=== PATIENT | female | born 1960 ===

== ENCOUNTER 2017-10-28 20:51 | Observation (INO) | payer OTHER ==
[2017-10-28 20:52] VITALS: BMI 23.6
[2017-10-28 22:19] LABS: BASO % 0.2 % (0.0-2.0); EOS # 0.4 K/uL (0.0-0.7); EOS % 4.7 % (0.0-4.0); HEMOGLOBIN 12.1 g/dL (12.0-16.0); LYMPH # 1.7 K/uL (1.0-4.3); LYMPH % 18.5 % (20.0-40.0); MEAN CELL VOLUME 84.1 fl (81.0-99.0); MEAN CORPUSCULAR HEMOGLOBIN 27.7 pg (27.0-31.0); MEAN CORPUSCULAR HGB CONC 32.9 g/dL (33.0-37.0); MEAN PLATELET VOLUME 8.4 fl (7.2-11.7); MONO # 0.6 K/uL (0.0-0.8); MONO % 6.9 % (0.0-10.0); NEUT # 6.3 K/uL (1.8-7.0); NEUT % 69.7 % (50.0-75.0); NRBC % 0.1 % (0.0-0.0); RBC 4.39 Mil/uL (3.80-5.20); RED CELL DISTRIBUTION WIDTH 15.6 % (11.5-14.5); WHITE BLOOD COUNT 9.1 K/uL (4.8-10.8)
[2017-10-28 22:29] LABS: ALB/GLOB RATIO 1.4 (1.0-2.1); ALBUMIN 4.4 g/dL (3.5-5.0); ALT/SGPT 42 U/L (9-52); AST/SGOT 39 U/L (14-36); BLOOD UREA NITROGEN 13 mg/dl (7-17); CALCIUM 9.6 mg/dL (8.4-10.2); GFR NON-AFRICAN AMERICAN > 60
--- NOTE | 2017-10-28 22:40 | ED PDOC ---
HPI: Chest Pain Time Seen by Provider: 10/28/17 21:00 Chief Complaint (Nursing): Chest Pain Chief Complaint (Provider): Chest Pain History Per: Patient History/Exam Limitations: no limitations Onset/Duration Of Symptoms: Days (x7) Current Symptoms Are (Timing): Still Present Additional Complaint(s): 57 y/o female with a PMHx of CAD, hypercholesterolemia, HTN and one cardiac stent presents to the ED complaining of intermittent left-sided chest pain, onset one week ago. Patient reports her bloody pressure has been high at systolic rate of 180 recently. Patient is complaint with medications. pt currently takes ASA and plavix. Patient denies fever, cough and recent illness. PMD: Dr. Silverman Senior Advisor: Dr. Zimmerman Past Medical History Reviewed: Historical Data, Nursing Documentation, Vital Signs Vital Signs: Last Vital Signs Temp 98.9 F 10/29/17 19:50 Pulse 67 10/29/17 19:50 Resp 18 10/29/17 19:50 BP 108/73 10/29/17 19:50 Pulse Ox 99 10/29/17 19:50 - Medical History PMH: CAD (s/p stent in the left main in 2), HTN, Hypercholesterolemia - Surgical History Surgical History: Coronary Stent Denies: Pacemaker - Family History Family History: States: Unknown Family Hx - Social History Current smoker - smoking cessation education provided: No Alcohol: None Drugs: Denies - Immunization History Hx Tetanus Toxoid Vaccination: No - Home Medications Home Medications: Ambulatory Orders Medication Instructions Recorded Aspirin [Aspir 81] 81 mg PO DAILY 01/23/13 Carvedilol [Coreg] 12.5 mg PO BID 01/08/14 Pitavastatin Calcium [Livalo] 2 mg PO HS 10/29/17 - Allergies Allergies/Adverse Reactions: Allergies Allergy/AdvReac Type Severity Reaction Status Date / Time No Known Allergies Allergy Verified 10/28/17 20:57 ERVIN Risk Score for UA/NSTEMI - ERVIN Risk Score Age > 64: NO 3 or more CAD Risk Factors: YES Known CAD (Stenosis greater than 50%): YES Aspirin use in past 7 days: YES Severe Angina: NO EKG ST changes greater than 0.5mm: NO Positive Cardiac Marker: NO ERVIN Score: 3 Risk %: 13% Curb-65 Severity Score - CURB-65 Severity Score Confusion: No Bun >19mg/dl (>7mmol/L): No Respiratory Rate greater than/equal to 30: No Systolic BP <90 or Diastolic BP less than/equal 60mmHg: No Age >64: No Curb-65 Score: 0 Percentage 30-day mortality: 0.6% Review of Systems ROS Statement: Except As Marked, All Systems Reviewed And Found Negative Constitutional: Negative for: Fever Cardiovascular: Positive for: Chest Pain Respiratory: Negative for: Cough Physical Exam - Reviewed Nursing Documentation Reviewed: Yes Vital Signs Reviewed: Yes - Physical Exam Appears: Positive for: Non-toxic, No Acute Distress Head Exam: Positive for: ATRAUMATIC, NORMOCEPHALIC Skin: Positive for: Normal Color, Warm, Dry Eye Exam: Positive for: Normal appearance, EOMI, PERRL ENT: Positive for: Normal ENT Inspection Neck: Positive for: Normal, Painless ROM Cardiovascular/Chest: Positive for: Regular Rate, Rhythm. Negative for: Murmur Respiratory: Positive for: Normal Breath Sounds. Negative for: Respiratory Distress Gastrointestinal/Abdominal: Positive for: Normal Exam, Soft. Negative for: Tenderness Back: Positive for: Normal Inspection Extremity: Positive for: Normal ROM. Negative for: Deformity Neurologic/Psych: Positive for: Alert, Oriented. Negative for: Motor/Sensory Deficits - Laboratory Results Result Diagrams: 10/28/17 22:15 10/28/17 22:15 - ECG O2 Sat by Pulse Oximetry: 99 (RA) Pulse Ox Interpretation: Normal Medical Decision Making Medical Decision Making: Time: 2140 Impression: Chest pain Rule out CAD given history with multiple cardiac risk factors Plan: -- EKG -- CXR Two Views BP currently well controlled while in the ER Time: 2214 Plan: -- CMP -- Troponin I -- CBC with differentials 2230 pts pcp is not from the area, the barrel raiser is dr zimmerman. pt currently pain free labs reviewed troponin negative explained to pt that need to admit to obs to fully rule out CAD, and cardiac arrythmia Time: 0000 Case discussed case with Dr. Koo, medical service. Patient will be admitted to medical service. Scribe Attestation: Documented by Janell Beard and Romelia Cervantes acting as scribes for Guy Cabrera MD. Provider Scribe Attestation: All medical record entries made by the Scribe were at my direction and personally dictated by me. I have reviewed the chart and agree that the record accurately reflects my personal performance of the history, physical exam, medical decision making, and the department course for this patient. I have also personally directed, reviewed, and agree with the discharge instructions and disposition. Disposition - Clinical Impression Clinical Impression: Chest pain - Patient ED Disposition Is Patient to be Admitted: Yes Counseled Patient/Family Regarding: Studies Performed, Diagnosis, Need For Followup - Disposition Disposition Time: 22:45 Condition: STABLE
[2017-10-29 07:40] LABS: HDL CHOLESTEROL 33 MG/DL (30-70)
[2017-10-29 07:51] LABS: LDL CHOLESTEROL 78 mg/dL (0-129)
--- NOTE | 2017-10-29 08:18 | CARD ---
APPROVED REPORT Date of service: 10/28/2017 EKG Measurement Heart [id number] <Conclusion> Normal sinus rhythm Normal ECG
--- NOTE | 2017-10-29 09:30 | RAD ---
Date of service: 10/28/2017 HISTORY: chest pain COMPARISON: Chest x-ray 10/07/2015 TECHNIQUE: Chest PA and lateral FINDINGS: LUNGS: No active pulmonary disease. PLEURA: No significant pleural effusion identified. No pneumothorax apparent. CARDIOVASCULAR: Normal. OSSEOUS STRUCTURES: Minor multilevel degenerative spondylosis of the thoracic spine VISUALIZED UPPER ABDOMEN: Normal. OTHER FINDINGS: None. IMPRESSION: No active disease.
--- NOTE | 2017-10-29 09:34 | CP.PCM.HP ---
History of Present Illness - History of Present Illness History of Present Illness: 57 year old female with PMHx of CAD, hypercholesterolemia, HTN and one cardiac stent presented to the ED complaining of intermittent left-sided chest pain x 1 week. Patient states blood pressure has been high with SBP around 180. Patient seen and examined at bedside this AM. Patient states she feels better, no longer with chest pain. Patient denies SOB, palpitations, headache, fever, chills, or changes in vision. Designer Writer: Dr. Fairbanks Present on Admission - Present on Admission Any Indicators Present on Admission: No Review of Systems - Review of Systems All systems: reviewed and no additional remarkable complaints except (mentioned in HPI) Past Patient History - Past Medical History & Family History Past Medical History?: Yes Past Family History: Reviewed and not pertinent - Past Social History Alcohol: None Drugs: Denies - CARDIAC Hx Hypercholesterolemia: Yes Hx Hypertension: Yes Hx Pacemaker: No - PULMONARY Hx Respiratory Disorders: No Hx Asthma: No Hx Bronchitis: No Hx Chronic Obstructive Pulmonary Disease (COPD): No Hx Emphysema: No Hx Lung Cancer: No Hx Pneumonia: No Hx Pulmonary Edema: No Hx Pulmonary Embolism: No Hx Respiratory Aspiration: No Hx Respiratory Tract Infection: No Hx Sleep Apnea: No Hx Tuberculosis: No - NEUROLOGICAL Hx Neurological Disorder: No Hx Alzheimer's Disease: No HX Cerebrovascular Accident: No Hx Dementia: No Hx Dizziness: No Hx Meningitis: No Hx Migraine: No Hx Multiple Sclerosis: No Hx Paralysis: No Hx Parkinson's Disease: No Hx Seizures: No Hx Syncope: No Hx Transient Ischemic Attacks (TIA): No Hx Vertigo: No - HEENT Hx HEENT Problems: No Hx Blind: No Hx Cataracts: No Hx Deafness: No Hx Difficulty Chewing: No Hx Epistaxis: No Hx Glaucoma: No Hx Macular Degeneration: No Hx Sinusitis: No - RENAL Hx Chronic Kidney Disease: No Hx Dialysis: No Hx Kidney Stones: No Hx Neurogenic Bladder: No Hx Pyelonephritis: No Hx Renal (Kidney) Cancer: No Hx Renal Failure: No - ENDOCRINE/METABOLIC Hx Endocrine Disorders: No Hx Adrenal Cancer: No Hx Diabetes Insipidus: No Hx Diabetes Mellitus Type 1: No Hx Diabetes Mellitus Type 2: No Hx Hyperthyroidism: No Hx Hypothyroidism: No Hx Systemic Lupus Erythematosus: No - HEMATOLOGICAL/ONCOLOGICAL Hx Blood Transfusions: No Hx Blood Transfusion Reaction: No - INTEGUMENTARY Hx Dermatological Problems: No - MUSCULOSKELETAL/RHEUMATOLOGICAL Hx Falls: No - GASTROINTESTINAL Hx Gastrointestinal Disorders: No - GENITOURINARY/GYNECOLOGICAL Hx Genitourinary Disorders: No - PSYCHIATRIC Hx Psychophysiologic Disorder: No Hx Substance Use: No - SURGICAL HISTORY Hx Coronary Stent: Yes - ANESTHESIA Hx Anesthesia: Yes Hx Anesthesia Reactions: No Hx Malignant Hyperthermia: No Meds Allergies/Adverse Reactions: Allergies Allergy/AdvReac Type Severity Reaction Status Date / Time No Known Allergies Allergy Verified 10/28/17 20:57 Physical Exam - Constitutional Appears: Well - Head Exam Head Exam: ATRAUMATIC, NORMAL INSPECTION, NORMOCEPHALIC - Eye Exam Eye Exam: EOMI, Normal appearance, PERRL - Neck Exam Neck exam: Positive for: Normal Inspection - Respiratory Exam Respiratory Exam: Clear to Auscultation Bilateral, NORMAL BREATHING PATTERN - Cardiovascular Exam Cardiovascular Exam: REGULAR RHYTHM, +S1, +S2 - GI/Abdominal Exam GI & Abdominal Exam: Normal Bowel Sounds, Soft. absent: Tenderness - Extremities Exam Extremities exam: Positive for: normal inspection - Back Exam Back exam: NORMAL INSPECTION - Neurological Exam Neurological exam: Alert, Oriented x3 - Psychiatric Exam Psychiatric exam: Normal Affect, Normal Mood - Skin Skin Exam: Dry, Intact, Normal Color, Warm Results - Vital Signs Recent Vital Signs: Last Vital Signs Temp 98 F 10/29/17 08:00 Pulse 67 10/29/17 09:03 Resp 20 10/29/17 08:00 BP 143/83 10/29/17 09:03 Pulse Ox 99 10/29/17 08:00 - Labs Result Diagrams: 10/28/17 22:15 10/28/17 22:15 Labs: Laboratory Results - last 24 hr 10/28/17 10/28/17 10/29/17 22:15 22:15 06:18 WBC 9.1 RBC 4.39 Hgb 12.1 Hct 36.9 MCV 84.1 D MCH 27.7 MCHC 32.9 L RDW 15.6 H Plt Count 242 MPV 8.4 Neut % (Auto) 69.7 Lymph % (Auto) 18.5 L [place] % (Auto) 6.9 Eos % (Auto) 4.7 H Baso % (Auto) 0.2 Neut # (Auto) 6.3 Lymph # (Auto) 1.7 [place] # (Auto) 0.6 Eos # (Auto) 0.4 Baso # (Auto) 0.0 Sodium 140 Potassium 3.8 Chloride 105 Carbon Dioxide 26 Anion Gap 13 BUN 13 Creatinine 0.7 Est GFR ( Amer) > 60 Est GFR (Non-Af Amer) > 60 Random Glucose 91 Calcium 9.6 Total Bilirubin 0.2 AST 39 H ALT 42 Alkaline Phosphatase 90 Troponin I < 0.0120 < 0.0120 Total Protein 7.6 Albumin 4.4 Globulin 3.2 Albumin/Globulin Ratio 1.4 Triglycerides 110 Cholesterol 139 LDL Cholesterol Direct 78 HDL Cholesterol 33 TSH 3rd Generation 4.28 Assessment & Plan - Assessment and Plan (Free Text) Assessment: 57 year old female with a PMHx of CAD, hypercholesterolemia, HTN and one cardiac stent admitted for chest pain as patient is high risk for cardiac events plan ekg and labs reviewed labs unremarkable trop x 3 negative pending cardiology consult c/w home meds at this time if patient is cleared from cardiology perspective and no new symptoms, patient can be discharged with follow up in office this week
[2017-10-29 12:17] VITALS: RESP 18
[2017-10-29 16:14] VITALS: O2SAT 99
[2017-10-29 19:51] VITALS: BP 108/73; PULSE 67; TEMP 98.9
--- NOTE | 2017-10-29 21:08 | CP.PCM.CON ---
History of Present Illness - History of Present Illness History of Present Illness: Consultation for evaluation of chest pain / not feeling well HPI: 57 year old female with hx of CAD s/p left main stenting in 2011 , s/p repeat cardiac cath in 07/06 with IVUS which showed patent stent with endothelization , HTN , repeat stress test in 07/07 which showed normal results presenting with not feeling well. Noted to be orthostatic on vitals here. ACS ruled out with serial enzymes x 3. Says that she gets right eye and ear discomfort with flushing of the face. BP has been fluctuant. Review of Systems - Review of Systems Systems not reviewed;Unavailable: Acuity of Condition - Constitutional Constitutional: As Per HPI - EENT Eyes: As Per HPI Ears: As Per HPI Nose/Mouth/Throat: As Per HPI - Breasts Breasts: As Per HPI - Cardiovascular Cardiovascular: As Per HPI - Respiratory Respiratory: As Per HPI - Gastrointestinal Gastrointestinal: As Per HPI - Genitourinary Genitourinary: As Per HPI - Reproductive: Female Reproductive:Female: As Per HPI - Menstruation Menstruation: As Per HPI - Musculoskeletal Musculoskeletal: As Per HPI - Integumentary Integumentary: As Per HPI - Neurological Neurological: As Per HPI - Psychiatric Psychiatric: As Per HPI - Endocrine Endocrine: As Per HPI - Hematologic/Lymphatic Hematologic: As Per HPI Past Patient History - Past Medical History & Family History Past Medical History?: Yes Past Family History: Reviewed and not pertinent - Past Social History Alcohol: None Drugs: Denies - CARDIAC Hx Hypercholesterolemia: Yes Hx Hypertension: Yes Hx Pacemaker: No - PULMONARY Hx Respiratory Disorders: No Hx Asthma: No Hx Bronchitis: No Hx Chronic Obstructive Pulmonary Disease (COPD): No Hx Emphysema: No Hx Lung Cancer: No Hx Pneumonia: No Hx Pulmonary Edema: No Hx Pulmonary Embolism: No Hx Respiratory Aspiration: No Hx Respiratory Tract Infection: No Hx Sleep Apnea: No Hx Tuberculosis: No - NEUROLOGICAL Hx Neurological Disorder: No Hx Alzheimer's Disease: No HX Cerebrovascular Accident: No Hx Dementia: No Hx Dizziness: No Hx Meningitis: No Hx Migraine: No Hx Multiple Sclerosis: No Hx Paralysis: No Hx Parkinson's Disease: No Hx Seizures: No Hx Syncope: No Hx Transient Ischemic Attacks (TIA): No Hx Vertigo: No - HEENT Hx HEENT Problems: No Hx Blind: No Hx Cataracts: No Hx Deafness: No Hx Difficulty Chewing: No Hx Epistaxis: No Hx Glaucoma: No Hx Macular Degeneration: No Hx Sinusitis: No - RENAL Hx Chronic Kidney Disease: No Hx Dialysis: No Hx Kidney Stones: No Hx Neurogenic Bladder: No Hx Pyelonephritis: No Hx Renal (Kidney) Cancer: No Hx Renal Failure: No - ENDOCRINE/METABOLIC Hx Endocrine Disorders: No Hx Adrenal Cancer: No Hx Diabetes Insipidus: No Hx Diabetes Mellitus Type 1: No Hx Diabetes Mellitus Type 2: No Hx Hyperthyroidism: No Hx Hypothyroidism: No Hx Systemic Lupus Erythematosus: No - HEMATOLOGICAL/ONCOLOGICAL Hx Blood Transfusions: No Hx Blood Transfusion Reaction: No - INTEGUMENTARY Hx Dermatological Problems: No - MUSCULOSKELETAL/RHEUMATOLOGICAL Hx Falls: No - GASTROINTESTINAL Hx Gastrointestinal Disorders: No - GENITOURINARY/GYNECOLOGICAL Hx Genitourinary Disorders: No - PSYCHIATRIC Hx Psychophysiologic Disorder: No Hx Substance Use: No - SURGICAL HISTORY Hx Coronary Stent: Yes - ANESTHESIA Hx Anesthesia: Yes Hx Anesthesia Reactions: No Hx Malignant Hyperthermia: No Meds Allergies/Adverse Reactions: Allergies Allergy/AdvReac Type Severity Reaction Status Date / Time No Known Allergies Allergy Verified 10/28/17 20:57 - Medications Medications: Current Medications Acetaminophen (Tylenol 325mg Tab) 650 mg PO Q4 PRN PRN Reason: Pain, Mild (1-3) Last Admin: 10/29/17 13:23 Dose: 650 mg Aspirin (Ecotrin) 81 mg PO DAILY [facility] Last Admin: 10/29/17 09:02 Dose: 81 mg Carvedilol (Coreg) 6.25 mg PO BID [facility] Last Admin: 10/29/17 19:17 Dose: Not Given Clopidogrel Bisulfate (Plavix) 75 mg PO DAILY [facility] Last Admin: 10/29/17 09:02 Dose: 75 mg Home Med (Pitavastatin Calcium [Livalo]) 2 mg PO [facility] Physical Exam - Constitutional Appears: Well - Head Exam Head Exam: ATRAUMATIC, NORMAL INSPECTION, NORMOCEPHALIC - Eye Exam Eye Exam: EOMI, Normal appearance, PERRL Pupil Exam: NORMAL ACCOMODATION, PERRL - ENT Exam ENT Exam: Mucous Membranes Moist, Normal Exam - Neck Exam Neck exam: Positive for: Normal Inspection - Respiratory Exam Respiratory Exam: Clear to Auscultation Bilateral, NORMAL BREATHING PATTERN - Cardiovascular Exam Cardiovascular Exam: REGULAR RHYTHM - GI/Abdominal Exam GI & Abdominal Exam: Normal Bowel Sounds, Soft. absent: Tenderness - Extremities Exam Extremities exam: Positive for: normal inspection - Back Exam Back exam: NORMAL INSPECTION - Neurological Exam Neurological exam: Alert, CN II-XII Intact, Normal Gait, Oriented x3, Reflexes Normal - Psychiatric Exam Psychiatric exam: Normal Affect, Normal Mood - Skin Skin Exam: Dry, Intact, Normal Color, Warm Results - Vital Signs Recent Vital Signs: Last Vital Signs Temp 98.9 F 10/29/17 19:50 Pulse 67 10/29/17 19:50 Resp 18 10/29/17 19:50 BP 108/73 10/29/17 19:50 Pulse Ox 99 10/29/17 19:50 - Labs Result Diagrams: 10/28/17 22:15 10/28/17 22:15 Labs: Laboratory Results - last 24 hr 10/28/17 10/28/17 10/29/17 22:15 22:15 06:18 WBC 9.1 RBC 4.39 Hgb 12.1 Hct 36.9 MCV 84.1 D MCH 27.7 MCHC 32.9 L RDW 15.6 H Plt Count 242 MPV 8.4 Neut % (Auto) 69.7 Lymph % (Auto) 18.5 L [place] % (Auto) 6.9 Eos % (Auto) 4.7 H Baso % (Auto) 0.2 Neut # (Auto) 6.3 Lymph # (Auto) 1.7 [place] # (Auto) 0.6 Eos # (Auto) 0.4 Baso # (Auto) 0.0 Sodium 140 Potassium 3.8 Chloride 105 Carbon Dioxide 26 Anion Gap 13 BUN 13 Creatinine 0.7 Est GFR ( Amer) > 60 Est GFR (Non-Af Amer) > 60 Random Glucose 91 Hemoglobin A1c 5.3 Calcium 9.6 Total Bilirubin 0.2 AST 39 H ALT 42 Alkaline Phosphatase 90 Troponin I < 0.0120 Total Protein 7.6 Albumin 4.4 Globulin 3.2 Albumin/Globulin Ratio 1.4 Triglycerides Cholesterol LDL Cholesterol Direct HDL Cholesterol TSH 3rd Generation 10/29/17 10/29/17 06:18 14:08 WBC RBC Hgb Hct MCV MCH MCHC RDW Plt Count MPV Neut % (Auto) Lymph % (Auto) [place] % (Auto) Eos % (Auto) Baso % (Auto) Neut # (Auto) Lymph # (Auto) [place] # (Auto) Eos # (Auto) Baso # (Auto) Sodium Potassium Chloride Carbon Dioxide Anion Gap BUN Creatinine Est GFR ( Amer) Est GFR (Non-Af Amer) Random Glucose Hemoglobin A1c Calcium Total Bilirubin AST ALT Alkaline Phosphatase Troponin I < 0.0120 < 0.0120 Total Protein Albumin Globulin Albumin/Globulin Ratio Triglycerides 110 Cholesterol 139 LDL Cholesterol Direct 78 HDL Cholesterol 33 TSH 3rd Generation 4.28 Assessment & Plan (1) Chest pain Assessment and Plan: acs ruled out recent stress testing done at [facility] in 07/07 normal stable to dc home Status: Acute (2) Flushing Assessment and Plan: etiology ? serotonin syndrome vs. post menopausal check 5hiaa levels MRI sinuses Status: Acute (3) Episode of hypertension Assessment and Plan: cont coreg cont asa Status: Acute
[2017-10-29] MEDS ORDERED: PITAVASTATIN CALCIUM 2 MG PO SCH (22:00)
--- NOTE | 2017-10-30 12:20 | CP.PCM.DIS ---
Provider - Provider Date of Admission: 10/29/17 00:09 Attending physician: Ryland Koo MD Consults: dr zimmerman, cardiology Time Spent in preparation of Discharge (in minutes): 20 Diagnosis - Discharge Diagnosis (1) Chest pain Status: Acute Hospital Course - Lab Results Lab Results: Most Recent Lab Values WBC 9.1 K/uL (4.8-10.8) 10/28/17 22:15 RBC 4.39 Mil/uL (3.80-5.20) 10/28/17 22:15 Hgb 12.1 g/dL (12.0-16.0) 10/28/17 22:15 Hct 36.9 % (34.0-47.0) 10/28/17 22:15 MCV 84.1 fl (81.0-99.0) D 10/28/17 22:15 MCH 27.7 pg (27.0-31.0) 10/28/17 22:15 MCHC 32.9 g/dL (33.0-37.0) L 10/28/17 22:15 RDW 15.6 % (11.5-14.5) H 10/28/17 22:15 Plt Count 242 K/uL (130-400) 10/28/17 22:15 MPV 8.4 fl (7.2-11.7) 10/28/17 22:15 Neut % (Auto) 69.7 % (50.0-75.0) 10/28/17 22:15 Lymph % (Auto) 18.5 % (20.0-40.0) L 10/28/17 22:15 [place] % (Auto) 6.9 % (0.0-10.0) 10/28/17 22:15 Eos % (Auto) 4.7 % (0.0-4.0) H 10/28/17 22:15 Baso % (Auto) 0.2 % (0.0-2.0) 10/28/17 22:15 Neut # (Auto) 6.3 K/uL (1.8-7.0) 10/28/17 22:15 Lymph # (Auto) 1.7 K/uL (1.0-4.3) 10/28/17 22:15 [place] # (Auto) 0.6 K/uL (0.0-0.8) 10/28/17 22:15 Eos # (Auto) 0.4 K/uL (0.0-0.7) 10/28/17 22:15 Baso # (Auto) 0.0 K/uL (0.0-0.2) 10/28/17 22:15 Sodium 140 mmol/l (132-148) 10/28/17 22:15 Potassium 3.8 MMOL/L (3.6-5.0) 10/28/17 22:15 Chloride 105 mmol/L (98-107) 10/28/17 22:15 Carbon Dioxide 26 mmol/L (22-30) 10/28/17 22:15 Anion Gap 13 (10-20) 10/28/17 22:15 BUN 13 mg/dl (7-17) 10/28/17 22:15 Creatinine 0.7 mg/dl (0.7-1.2) 10/28/17 22:15 Est GFR ( Amer) > 60 10/28/17 22:15 Est GFR (Non-Af Amer) > 60 10/28/17 22:15 Random Glucose 91 mg/dL (65-105) 10/28/17 22:15 Hemoglobin A1c 5.3 % (4.2-6.5) 10/29/17 06:18 Calcium 9.6 mg/dL (8.4-10.2) 10/28/17 22:15 Total Bilirubin 0.2 mg/dl (0.2-1.3) 10/28/17 22:15 AST 39 U/L (14-36) H 10/28/17 22:15 ALT 42 U/L (9-52) 10/28/17 22:15 Alkaline Phosphatase 90 U/L (38-126) 10/28/17 22:15 Troponin I < 0.0120 ng/mL (0.00-0.120) 10/29/17 14:08 Total Protein 7.6 G/DL (6.3-8.2) 10/28/17 22:15 Albumin 4.4 g/dL (3.5-5.0) 10/28/17 22:15 Globulin 3.2 gm/dL (2.2-3.9) 10/28/17 22:15 Albumin/Globulin Ratio 1.4 (1.0-2.1) 10/28/17 22:15 Triglycerides 110 mg/DL (0-149) 10/29/17 06:18 Cholesterol 139 mg/dL (0-199) 10/29/17 06:18 LDL Cholesterol Direct 78 mg/dL (0-129) 10/29/17 06:18 HDL Cholesterol 33 MG/DL (30-70) 10/29/17 06:18 TSH 3rd Generation 4.28 mIU/ML (0.46-4.68) 10/29/17 06:18 - Hospital Course Hospital Course: 57 year old female with a PMHx of CAD, hypercholesterolemia, HTN and one cardiac stent admitted for chest pain as patient is high risk for cardiac events. Trop x 3 negative. Cardiology evaluated patient. d/c plavix. echo recently done, normal. patient to follow up with PCP and cardio in 1 week. Lowered coreg due to orthostatic hypotension. Discharge Exam - Head Exam Head Exam: ATRAUMATIC, NORMAL INSPECTION, NORMOCEPHALIC - Eye Exam Eye Exam: Normal appearance - Respiratory Exam Respiratory Exam: Clear to PA & Lateral, NORMAL BREATHING PATTERN - Cardiovascular Exam Cardiovascular Exam: REGULAR RHYTHM, +S1, +S2 - Extremities Exam Extremities exam: normal inspection - Neurological Exam Neurological exam: Alert, Oriented x3 - Psychiatric Exam Psychiatric exam: Normal Affect, Normal Mood - Skin Skin Exam: Dry, Normal Color, Warm Discharge Plan - Follow Up Plan Condition: STABLE Disposition: HOME/ ROUTINE Instructions: Chest Pain (DC) Additional Instructions: TOLERATED
== END 2017-10-29 22:27 | disposition home or self-care (01) ==
LOC: H.ER 20:51 → H.ERHOLD 10-29 00:09 → INTOOBSV 10-29 00:09 → H.TEL 10-29 03:16
PROVIDERS: ADMIT Family Medicine; ATTEND Family Medicine
DX: R07.9 Chest pain, unspecified (principal); I25.10 Atherosclerotic heart disease of native coronary artery without angina pectoris; E78.00 Pure hypercholesterolemia, unspecified; I10 Essential (primary) hypertension; Z95.5 Presence of coronary angioplasty implant and graft; Z79.82 Long term (current) use of aspirin; Z79.02 Long term (current) use of antithrombotics/antiplatelets
CPT/HCPCS: 36415; 71046; 80053; 80061; 83036; 84443; 84484; 85025; 93005; 99283; G0378